=== PATIENT | female | born 1980 | race Caucasian/White ===

== ENCOUNTER 2025-02-26 23:46 | Emergency (ER) | payer OTHER, SELFPAY ==
[2025-02-26 23:54] VITALS: BP 163/51; PULSE 85; RESP 24; TEMP 36.5; O2SAT 100; BMI 33.5
[2025-02-27 00:30] VITALS: RESP 22; O2SAT 98
[2025-02-27] MEDS: fentaNYL 50 mcg/mL INJ 2mL 100 MCG IVP (00:30)
[2025-02-27] MEDS: valproic acid inj 500 MG in sodium chloride 0.9% 50 ML 55 MG IV (00:31)
[2025-02-27] MEDS: dexamethasone 10 mg/mL INJ IVP (00:31)
[2025-02-27] MEDS: metoclopramide 5 mg/mL SDV 2 mL 10 MG IVP (00:31)
[2025-02-27 00:37] VITALS: BP 167/96; PULSE 69; RESP 20; O2SAT 100
[2025-02-27 01:02] VITALS: BP 148/91; PULSE 59; O2SAT 95
--- NOTE | 2025-02-27 01:25 | ED_ITS ---
HPI - Headache General: Chief Complaint: Headache Stated Complaint: Headache\N Time Seen by Provider: 02/27/25 00:08 History of Present Illness: 44-year-old female with history of migra ine headache. She says that she gets to or so migraines a year. She has had multiple concussions in the past. She says that when she gets these headaches, they cause extreme pain, and she usually holds her head, saying my head hurts, my head hurts . She also says I am allergic to contrast, and please do not give me caffeine . She presents to the emergency department saying my head hurts, my head hurts, I am allergic to contrast please do not give me caffeine . She is writhing in pain. Initially, because of the pain, she is not able to answer questions. After administration of a migraine cocktail, she is at baseline mental status, and able to answer all questions. She went scuba diving earlier in the day. She states that she already was somewhat feeling ill prior to the scuba dive, with a headache. The headache intensified over the course of the day, worsening this evening. She threw up multiple times this evening. She denies weakness, significant vision changes, other language problems, etc. She states that her pain is now 2 out of 10. Related Data Allergies Allergy/AdvReac Type Severity Reaction Status Date / Time caffeine Allergy Unknown Verified 02/27/25 00:00 iodine Allergy Unknown Verified 02/27/25 00:00 morphine Allergy Unknown Verified 02/27/25 00:00 Physical Exam Const: COMMON NORMALS: alert GENERAL APPEARANCE: in distress and ill appearing ORIENTATION/CONSCIOUSNESS: Yes oriented to person, Yes oriented to place and Yes oriented to time HENMT: COMMON NORMALS: normocephalic and atraumatic HEAD & SCALP: normocephalic and atraumatic FACE & SINUS: normal facial exam and face symmetric; no erythema and no edema Eye: COMMON NORMALS: Equal, round and reactive pupils present and EOMs intact bilaterally PUPIL: Yes Equal, round and reactive pupils present Neck/C-Spine: GENERAL: Yes trachea midline Neuro: COMMON NORMALS: no focal motor deficits SENSORIUM/ORIENTATION: Yes alert, Yes oriented to person, Yes oriented to place and Yes oriented to time COORDINATION/BALANCE: [id number] test normal and [id number] test normal SPEECH: speech normal MOTOR EXAM: Pronator motor function not present, Motor fasciculations not present and Normal motor muscle tone present throughout COORDINATION: [id number]-[id number] test normal and ehmw-bx-[id number] test normal OTHER: Exam performed after medication. Course Vital Signs: Vital signs: Vital Signs Temperature 97.7 F 02/26/25 23:54 Pulse Rate 85 02/26/25 23:54 Respiratory Rate 22 H 02/27/25 00:30 Blood Pressure 163/51 02/26/25 23:54 Pulse Oximetry 98 02/27/25 00:30 Oxygen Delivery Me thod Room Air 02/26/25 23:54 MDM - Headache Medical Decision Making Patient was initially confused, writhing in pain. After administration of medication, normal neurological exam. Headache is resolved at this point. After return to baseline, patient states that this presentation is normal for her migraine headache. She does not believe she experienced any barotrauma scuba diving, as she only went to 13 feet, and spent most of her time at 15 to 17 feet. She is now asymptomatic. She wishes to go home. She knows to return for any return of or worsening symptoms or No radiology studies performed this visit Discharge Plan Discharge Patient Disposition: Home Clinical Impression: Migraine headache Condition: Stable Discharge Orders: Discharge ED (Routine); Ordered 02/27/25 Ordered By: Femi Torres Patient Instructions: Acute Headache (ED), Opioid Safety, Pain Management Activity Restrictions/Additional Instructions: Return for any return of your headache, speech problems, vision problems, weakness, any other concerning symptoms. Print Language: Luxembourgish Coding Level of Care Code ED [employer] for Sangita Ramirez
[2025-02-27 01:32] VITALS: BP 165/98; PULSE 65; O2SAT 98
== END 2025-02-27 01:51 | disposition home or self-care (01) ==
PROVIDERS: Emergency Provider Emergency Medicine
DX: G43.909 Migraine, unspecified, not intractable, without status migrainosus (principal)
CPT/HCPCS: 96365; 96375; 99285; J1100; J2765; J3010; J3490